=== PATIENT | female | born 1965 | race Caucasian/White ===

== ENCOUNTER → 2017-01-17 | Outpatient (CLI) | payer OTHER ==
[~2017-01-17] MED LIST: ATEN1TAB73 PO; ATOR40TA16 PO; CLONIDINE PO; HYDR25TA5 PO; LEVO.1 PO; LEVO125T4 PO; LEXA20TA PO; LISI10TA3 PO; METF1000 PO; QUET1TAB67 PO; ROSI1TAB23; SOMA PO
[2017-01-17 10:10] LABS: BLOOD GAS BASE EXCESS 3.9 mmol/L (-2-2); BLOOD GAS CARBOXYHEMOGLOBIN 7.2 % (0-4); BLOOD GAS HCO3 28 mmol/L (22-26); BLOOD GAS METHEMOGLOBIN 1.4 % (0-2); BLOOD GAS O2 HGB SATURATION 86 % (90-100); BLOOD GAS OXYGEN CONTENT 17.2 Vol % (12.0-20.0); BLOOD GAS PCO2 45 mmHG (38-42); BLOOD GAS PO2 71 mmHG (61-120); BLOOD GAS TOTAL HGB 14.1 G/DL (12.0-16.0); CRITICAL VALUE YES; OXYGEN DEVICE RA; TEMP CORR TO 98.6
[2017-01-17 10:11] LABS: DRAW SITE RT RADIAL; NUMBER OF ARTERIAL PUNCTURES 1; STAT NO; ULNAR PULSE Y
--- NOTE | 2017-01-19 11:44 | RSPPFT ---
DATE OF PROCEDURE: 01/19/17 COMMENTS: Spirometry with FVC of 1.3 at 43% of predicted, FEV1 of 0.8 at 35%, FEV1/FVC ratio is decreased. Flow is decreased at FEF 25, FEF 50, FEF 75 and FEF 25-75. There is a good response after bronchodilator treatment. Lung volumes show residual volume is normal. TLC is decreased. Diffusion capacity is decreased. Flow volume loop indicates an obstructive pattern. Room air arterial blood gases show pH of 7.42, PCO2 of 45, Po2 of 71, BiCarb of 28 and O2 Saturation at 86%. 6-minute walk test shows no significant de-saturation. IMPRESSION: 1. Severe obstructive lung disease. 2. Good response after bronchodilator treatment. 3. Mild restrictive lung disease. 4. Total lung capacity is decreased. 5. Decreased diffusion capacity. 6. Blood gases show mild hypoxia on room air. 7. 6-minute walk test shows no significant de-saturation.
== END ==
LOC: PHRSP 09:33
PROVIDERS: ATTEND Specialist
DX: J44.9 Chronic obstructive pulmonary disease, unspecified (principal)
CPT/HCPCS: 36600; 82805; 94060; 94620; 94726; 94729

== ENCOUNTER 2017-01-22 10:00 | Emergency (ER) | payer OTHER ==
[~2017-01-22] VITALS: Ht 160 cm; Wt 78.0 kg
[~2017-01-22 10:00] MED LIST changes: -ATOR40TA16 PO; -HYDR25TA5 PO; -LEVO125T4 PO; -LISI10TA3 PO; -METF1000 PO
[2017-01-22 10:10] VITALS: BP 110/84; PULSE 86; RESP 16; TEMP 98.3; O2SAT 95
--- NOTE | 2017-01-22 10:18 | PD ---
HPI Chief Complaint: Musculoskeletal Complaint Time Seen by Provider: 10:15 Travel History International Travel<30 days: No Contact w/Intl Traveler<30days: No Traveled to known affect area: No History of Present Illness HPI Patient presents with complaints of right fifth toe pain after kicking a coffee table last night. Denies nausea vomiting diarrhea or fever. Denies . Denies any chest pain shortness of breath urinary or bowel symptoms. Pain is aggravated with ambulation. Able to bear weight. History of diabetes and hypertension. Patient does not take any pain medication. PFSH Past Medical History Autoimmune Disease: No Blood Disorders: No Bipolar Disorder: Yes Anxiety: Yes Depression: Yes Cancer: Yes (CERVICAL QUIT CHEMO) Cardiovascular Problems: Yes High Cholesterol: No Chemotherapy: Yes (QUIT CHEMO FOR CERVICAL CANCER) Diabetes: Yes Diminished Hearing: No Endocrine: No Glaucoma: No Genitourinary: No Headaches: No Hiatal Hernia: Yes (had surgery 2 or 3 mos ago.) Herniated Disk: Yes (Fell 25 ft from a wall - 10 years ago.) Hypertension: Yes Immune Disorder: No Musculoskeletal: Yes Neurologic: No Psychiatric: Yes (says Bipolar & Multiple Personality DO.) Reproductive: No Respiratory: No Radiation Therapy: No Seizures: No Sickle Cell Disease: No Thyroid Disease: Yes : 1 Para: 0 Miscarriage: 0 : 1 Past Surgical History Abdominal Surgery: Yes (Gallbladder Surgery; hiatal herniorraphy in or 02/10) AICD: No Arteriovenous Shunt: No Cholecystectomy: Yes (1997) Insulin Pump: No Joint Replacement: No Pacemaker: No Social History Alcohol Use: Yes (12 beers daily) Tobacco Use: Yes (1 PPD) Substance Use: Yes (pot, Positive for amphetamines.) Allergies-Medications (Allergen,Severity, Reaction): Coded Allergies: No Known Allergies (Verified , 01/22/17) Reported Meds & Prescriptions Reported Meds & Active Scripts Active Reported Metformin (Metformin HCl) 1,000 Mg Tab 1,000 Mg PO BIDPC With meals Levothyroxine (Levothyroxine Sodium) 125 Mcg Tab 125 Mcg PO DAILY Atorvastatin (Atorvastatin Calcium) 40 Mg Tab 40 Mg PO HS Lisinopril 10 Mg Tab 10 Mg PO DAILY Hydrochlorothiazide 25 Mg Tab 25 Mg PO DAILY Review of Systems General / Constitutional: No: Fever Eyes: No: Visual changes HENT: No: Headaches Cardiovascular: No: Chest Pain or Discomfort Respiratory: No: Shortness of Breath Gastrointestinal: No: Abdominal Pain Genitourinary: No: Dysuria Musculoskeletal: No: Pain Skin: No Rash Neurologic: No: Weakness Psychiatric: No: Depression Endocrine: No: Polydipsia Hematologic/Lymphatic: No: Easy Bruising Physical Exam Narrative GENERAL: Well-nourished, well-developed patient. SKIN: Focused skin assessment warm/dry. HEAD: Normocephalic. EYES: No scleral icterus. No injection or drainage. NECK: Supple, trachea midline. No JVD or lymphadenopathy. CARDIOVASCULAR: Regular rate and rhythm without murmurs, gallops, or rubs. RESPIRATORY: Breath sounds equal bilaterally. No accessory muscle use. GASTROINTESTINAL: Abdomen soft, non-tender, nondistended. MUSCULOSKELETAL: No cyanosis, or edema. BACK: Nontender without obvious deformity. No CVA tenderness. Examination of the right toe does reveal some mild erythema and edema without any bony deformity Data Data Last Documented VS Vital Signs Date Time Temp Pulse Resp B/P Pulse Ox O2 Delivery O2 Flow Rate FiO2 01/22/17 10:10 98.3 86 16 110/84 95 Orders Toe (Min 2vws) (01/22/17 ) Splint Or Brace Apply/Monitor (01/22/17 11:18) MDM Medical Decision Making Medical Screen Exam Complete: Yes Emergency Medical Condition: Yes Differential Diagnosis Toe fracture, toe contusion, metatarsal fracture Narrative Course Assessment and plan discussed with patient at bedside. Films of the right fifth toe reveals a fracture of the proximal phalanx. Diagnosis Primary Impression: Phalanx fracture, foot Qualified Code: S92.514A - Closed nondisplaced fracture of proximal phalanx of lesser toe of right foot, initial encounter Patient Instructions: General Instructions Additional Instructions: Motrin or Tylenol for pain, ada tape for comfort, consider a hard sole shoe. Follow-up with PCP. Disposition: 01 DISCHARGE HOME Condition: Good Jose Addison MD January 22, 2017 10:18
[2017-01-22] MEDS ORDERED: LEVO125T4 PO (10:26)
[2017-01-22] MEDS ORDERED: LISI10TA3 PO (10:26)
[2017-01-22] MEDS ORDERED: METF1000 PO (10:26)
[2017-01-22] MEDS ORDERED: ATOR40TA16 PO (10:26)
[2017-01-22] MEDS ORDERED: HYDR25TA5 PO (10:26)
--- NOTE | 2017-01-22 11:13 | RADHPO ---
EXAM DATE/TIME: 01/22/2017 10:52 [facility] COMPARISON: No previous studies available for comparison. INDICATIONS : Stubbed 5th toe on furniture MEDICAL HISTORY : Diabetes mellitus type II. Hypertension Aneurysm, intracranial. SURGICAL HISTORY : None. ENCOUNTER: Initial ACUITY: 2 days PAIN SCORE: 10/10 LOCATION: Right 5th toe FINDINGS: There is a slightly displaced fracture through the proximal shaft of the fifth proximal phalanx. CONCLUSION: Fifth proximal phalanx fracture. Syd Pedersen MD on January 22, 2017 at 11:11 Board Certified Radiologist. This report was verified electronically.
== END 2017-01-22 11:48 | disposition home or self-care (01) ==
LOC: PHEFT 10:00
DX: S92.514A Nondisplaced fracture of proximal phalanx of right lesser toe(s), initial encounter for closed fracture (principal); I10 Essential (primary) hypertension; W22.03XA Walked into furniture, initial encounter; Y93.9 Activity, unspecified; Y92.9 Unspecified place or not applicable; Y99.9 Unspecified external cause status
CPT/HCPCS: 73660; 99283